=== PATIENT | female | born 1990 | race African-American/Black ===

== ENCOUNTER 2020-08-28 21:50 | Emergency (ER) | payer OTHER, BC ==
[2020-08-28] MEDS ORDERED: Boostrix 0.5 ML (Tdap) VIAL ONE (22:14)
== END 2020-08-28 22:41 | disposition home or self-care (01) ==
LOC: ERS 21:50
DX: S21.232A Puncture wound without foreign body of left back wall of thorax without penetration into thoracic cavity, initial encounter (principal); W54.0XXA Bitten by dog, initial encounter
CPT/HCPCS: 90471; 90715